=== PATIENT | female | born 1940 | race Caucasian/White ===

== ENCOUNTER 2016-05-12 17:57 | Emergency (ER) | payer OTHER ==
[~2016-05-12] VITALS: Ht 162.6 cm; Wt 50.7 kg
[~2016-05-12 17:57] MED LIST: ARICEPT5 MG PO; ASPIRIN325 MG PO; LAMICTAL150 M1 PO; SYNTHROID50 MCG PO
[2016-05-12] MEDS ORDERED: AUGMENTIN875 MG PO (21:55)
[2016-05-12 22:09] VITALS: BP 144/81
== END 2016-05-12 22:10 | disposition home or self-care (01) ==
LOC: EME 17:57
DX: S68.123A Partial traumatic metacarpophalangeal amputation of left middle finger, initial encounter (principal); W54.0XXA Bitten by dog, initial encounter; G40.909 Epilepsy, unspecified, not intractable, without status epilepticus
CPT/HCPCS: 73140; 99281; 99284; S0020